=== PATIENT | female | born 1960 | race African-American/Black ===

== ENCOUNTER 2018-08-28 05:15 | Inpatient (IN) | payer MEDICAID ==
[~2018-08-28] VITALS: Ht 149.9 cm; Wt 74.8 kg
[2018-08-28] MEDS ORDERED: MAGNESIUM/ALUMINUM HYDROXIDE/SIMETHICONE 30ML UDC PO STA (07:01)
[2018-08-28] MEDS ORDERED: ONDANSETRON HCL 4MG/2ML INJ IV STA (07:01)
[2018-08-28] MEDS ORDERED: MORPHINE SULFATE 4 MG/ML CPJ (NOT FOR IM USE) IV STA (07:01)
[2018-08-28] MEDS ORDERED: SODIUM CHLORIDE 0.9% 1,000 ML IV ONE (07:01)
[2018-08-28] MEDS ORDERED: METOCLOPRAMIDE HCL 10MG/2ML VIAL IV STA (07:01)
[2018-08-28] MEDS ORDERED: FAMOTIDINE 20MG/2ML VIAL IV STA (07:01)
[2018-08-28] MEDS ORDERED: MORPHINE SULFATE 4 MG/ML CPJ (NOT FOR IM USE) IV ONE (07:15)
[2018-08-28 08:29] LABS: BASOPHILS % 0.8 % (0.0-2.0); HEMATOCRIT. 47.3 % (36.0-48.0); HEMOGLOBIN. 16.4 g/dL (12.0-16.0); LYMPHOCYTES % 19.3 % (20.0-50.0); MEAN CORPUSCULAR HEMOGLOBIN 33.1 pg (28.0-32.0); MEAN CORPUSCULAR VOLUME 95.5 fL (81.0-99.0); MEAN PLATELET VOLUME 7.6 fl (7.4-10.4); MONOCYTES % 6.8 % (2.0-8.0); NEUTROPHILS % 73.1 % (40.0-76.0); PLATELET 359 x1000/uL (130-400); RED BLOOD CELL COUNT 4.95 mill/uL (4.2-5.4); RED CELL DISTRIBUTION WIDTH 13.5 % (11.6-14.6)
[2018-08-28 08:35] LABS: CHLORIDE 102 mEq/L (98-107)
[2018-08-28 08:39] LABS: ETHANOL BLOOD < 10 mg/dL
[2018-08-28 08:40] LABS: HCG SCREEN NEGATIVE
[2018-08-28] MEDS ORDERED: FAMOTIDINE 20MG/2ML VIAL IV SCH (09:00)
[2018-08-28 12:00] VITALS: BP 111/81
[2018-08-28] MEDS ORDERED: MAGNESIUM/ALUMINUM HYDROXIDE/SIMETHICONE 30ML UDC PO PRN (13:15)
[2018-08-28] MEDS ORDERED: CLONIDINE 0.1MG TABLET PO PRN (14:45)
[2018-08-28] MEDS ORDERED: ONDANSETRON HCL 4MG/2ML INJ IV PRN (14:45)
[2018-08-28] MEDS ORDERED: DIPHENHYDRAMINE 50MG/ML VIAL IV PRN (14:45)
[2018-08-28] MEDS ORDERED: KETOROLAC 15MG/ML VIAL IV PRN (14:45)
[2018-08-28] MEDS ORDERED: ACETAMINOPHEN 325MG TABLET PO PRN (14:45)
[2018-08-28] MEDS ORDERED: LORAZEPAM 0.5MG TABLET PO PRN (14:45)
[2018-08-28] MEDS ORDERED: POTASSIUM CHLORIDE 20MEQ/PACKET PO NR (15:00)
[2018-08-28] MEDS ORDERED: SODIUM CHLORIDE 0.9% 1,000 ML IV SCH (15:00)
[2018-08-28 16:00] VITALS: BP 104/84
[2018-08-28] MEDS ORDERED: MVI, ADULT NO.1 10 ML, FOLIC ACID 1 MG, THIAMINE HCL 100 MG in SODIUM CHLORIDE 0.9% 1,0... IV NR ×4 (18:00)
[2018-08-28 20:00] VITALS: BP 123/66
[2018-08-28] MEDS: AMLODIPINE 5MG TABLET PO SCH (20:58)
[2018-08-28] MEDS ORDERED: TEMAZEPAM 15MG CAPSULE PO PRN (21:00)
[2018-08-29] VITALS: BP 129/81
[2018-08-29 04:00] VITALS: BP 125/79
[2018-08-29 08:00] VITALS: BP 152/100
[2018-08-29] MEDS ORDERED: OMEPRAZOLE 20MG CAPSULE EXTENDED RELEASE PO SCH (08:00)
[2018-08-29] MEDS: AMLODIPINE 5MG TABLET PO SCH (08:31)
[2018-08-29] MEDS ORDERED: FAMOTIDINE 20MG/2ML VIAL IV SCH (09:00)
== END 2018-08-29 09:55 | disposition left against medical advice (07) | DRG 241 ==
LOC: ER 05:15 → 8WST 09:59 → EDBEDREQ 10:03 → EDBEDREQTM 10:03 → ER 11:35
PROVIDERS: ADMIT Internal Medicine; ATTEND Internal Medicine
DX: K29.01 Acute gastritis with bleeding (principal); E66.9 Obesity, unspecified; E87.6 Hypokalemia; F12.90 Cannabis use, unspecified, uncomplicated; F17.200 Nicotine dependence, unspecified, uncomplicated; Z53.21 Procedure and treatment not carried out due to patient leaving prior to being seen by health care provider; F41.1 Generalized anxiety disorder; I10 Essential (primary) hypertension; K21.9 Gastro-esophageal reflux disease without esophagitis; K57.90 Diverticulosis of intestine, part unspecified, without perforation or abscess without bleeding; Z80.3 Family history of malignant neoplasm of breast; Z82.49 Family history of ischemic heart disease and other diseases of the circulatory system; Z85.3 Personal history of malignant neoplasm of breast; Z90.12 Acquired absence of left breast and nipple; Z90.49 Acquired absence of other specified parts of digestive tract; Z68.33 Body mass index [BMI] 33.0-33.9, adult
CPT/HCPCS: 36415; 71045; 74176; 80051; 80076; 80320; 82728; 83540; 83550; 83735; 84703; 86850; 86900; 93005; 96361; 96374; 96375; 96376; 99285; C1893; J1885; J2270; J2405; J2765; J3411; J3490; J7030; G0480